=== PATIENT | male | born 2000 | race American Indian/Alaskan Native ===

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

== ENCOUNTER 2018-11-01 23:49 | Emergency (ER) | payer MEDICAID ==
[2018-11-02] MEDS ORDERED: NACL 0.9% 1000 ML 1,000 ML IV ONE (00:22)
[2018-11-02] MEDS ORDERED: KEPPRA 1,000 MG/NS 0.75% 100ML 1,000 MG/100 ML BAG IV ONE (00:22)
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
[2018-11-02 00:43] LABS: Basophils % (Auto) 0.4 % (0.0-1.8); Eosinophils % (Auto) 0.8 % (0.0-4.3); Lymphocytes # (Auto) 0.6 K/mm3 (1.2-5.4); Lymphocytes % (Auto) 13.3 % (13.4-35.0); Mean Corpuscular HGB Conc 37 % (32-34); Mean Corpuscular Volume 88 fl (84-94); Monocytes # (Auto) 0.3 K/mm3 (0.0-0.8); Monocytes % (Auto) 7.6 % (0.0-7.3); Platelet Count 244 K/mm3 (140-440); Red Blood Count 4.88 M/mm3 (3.65-5.03); Red Cell Distribution Width 12.7 % (13.2-15.2)
[2018-11-02 01:17] LABS: Hematocrit 42.9 % (35.5-45.6); Hemoglobin 15.6 gm/dl (11.8-15.2)
--- NOTE | 2018-11-02 01:19 | Cat Scan Report ---
PROCEDURE: CT HEAD/BRAIN WO CON TECHNIQUE: Computerized tomography of the head was performed without contrast material. CT DOSE LENGTH PRODUCT: 920.5 mGycm HISTORY: Seizure COMPARISONS: None . FINDINGS: Skull and scalp: Normal . Paranasal sinuses: Normal . Ventricles and subarachnoid spaces: Normal . Cerebrum: No evidence of hemorrhage, acute infarction or mass . Cerebellum and brainstem: No evidence of hemorrhage, acute infarction or mass . Vasculature: Normal . Other: None . ASPECTS: 10 IMPRESSION: Normal Examination . This document is electronically signed by Yanet Mathews DO., November 02 2018 01:17:39 AM ET
[2018-11-02 01:26] LABS: Alanine Aminotransferase 10 units/L (7-56); Albumin 4.4 g/dL (3.9-5); BUN/Creatinine Ratio 11; Blood Urea Nitrogen 10 mg/dL (9-20); Calcium 9.9 mg/dL (8.4-10.2); Hemolysis Index 6
--- NOTE | 2018-11-02 01:29 | XRay Report ---
PROCEDURE: XR FOREARM RT TECHNIQUE: Right forearm radiographs, AP and lateral views. HISTORY: right forearm pain COMPARISONS: None . FINDINGS: Fracture (s) and/or Dislocation(s): None . Joint space(s): Normal . Soft tissues: Normal . Bone mineralization: Normal . Foreign bodies: None . IMPRESSION: Normal Examination . This document is electronically signed by Yanet Mathews DO., November 02 2018 01:27:54 AM ET
[2018-11-02] MEDS ORDERED: TORADOL IV ONE (01:31)
[2018-11-02 02:38] LABS: Amphetamine Screen,Urine PRESUMPTIVE NEGATIVE; Benzodiazepines Screen,Urine PRESUMPTIVE NEGATIVE; Cannabinoid Screen,Urine PRESUMPTIVE NEGATIVE; Cocaine Screen,Urine PRESUMPTIVE NEGATIVE; Methadone Screen,Urine PRESUMPTIVE NEGATIVE; Opiate Screen,Urine PRESUMPTIVE NEGATIVE
[2018-11-02 02:48] LABS: Bilirubin,Urine NEG (Negative); Blood,Urine NEG (Negative); Color,Urine Yellow (Yellow); Hyaline Casts,Urine 6 /LPF; Mucus,Urine FEW /HPF; Urobilinogen,Urine < 2.0 mg/dL (<2.0)
[2018-11-02 03:45] VITALS: BP 122/71
== END 2018-11-02 03:05 | disposition home or self-care (01) ==
LOC: ED 23:49
DX: G40.909 Epilepsy, unspecified, not intractable, without status epilepticus (principal); M79.631 Pain in right forearm; F12.10 Cannabis abuse, uncomplicated; F17.200 Nicotine dependence, unspecified, uncomplicated
CPT/HCPCS: 36415; 70450; 73090; 80053; 80307; 81001; 82550; 85025; 93005; 93010; 96374; 96375; 99285; G0480; J1885; J1953; J7030; 80320

== ENCOUNTER 2019-02-03 02:14 | Emergency (ER) | payer MEDICAID ==
[2019-02-03] MEDS ORDERED: NACL 0.9% 1000 ML 1,000 ML IV ONE (02:22)
[2019-02-03] MEDS ORDERED: KEPPRA 1,000 MG/NS 0.75% 100ML 1,000 MG/100 ML BAG IV ONE (02:23)
--- NOTE | 2019-02-03 02:33 | Emergency Department Report ---
ED Altered Mental Status HPI - General Stated Complaint: UNRESPONSIVE Time Seen by Provider: 02/03/19 02:21 - History of Present Illness Initial Comments: Patient is 18 years old male with history of seizure. Patient brought to the emergency room via EMS after patient was found unresponsive at home. EMS stated that patient received narcan but no response. Upon arrival to the ER patient is obtunded but responds to voice command. Vital signs stable with oxygen saturation of 100% on nonrebreather. MD Complaint: altered mental status, decreased responsiveness -: unknown Severity: moderate Context: seizure disorder - Related Data Previous Rx's Medication Instructions Recorded Last Taken Type levETIRAcetam [Keppra] 500 mg PO BID #60 tablet 11/02/18 Unknown Rx levETIRAcetam [Keppra TAB] 500 mg PO BID #60 tablet 02/03/19 Unknown Rx Allergies Allergy/AdvReac Type Severity Reaction Status Date / Time No Known Allergies Allergy Unverified 02/15/17 19:24 ED Review of Systems ROS: Stated complaint: UNRESPONSIVE Other details as noted in HPI Comment: All other systems reviewed and negative Constitutional: denies: chills Cardiovascular: denies: chest pain, palpitations Gastrointestinal: denies: abdominal pain, nausea Neurological: denies: headache, weakness, numbness, paresthesias ED Past Medical Hx - Past Medical History Hx Seizures: Yes (possible never ffup) - Social History Smoking Status: Current Every Day Smoker Substance Use Type: Marijuana - Medications Home Medications: Home Medications Medication Instructions Recorded Confirmed Last Taken Type levETIRAcetam [Keppra] 500 mg PO BID #60 tablet 11/02/18 Unknown Rx levETIRAcetam [Keppra TAB] 500 mg PO BID #60 tablet 02/03/19 Unknown Rx ED Physical Exam - General Limitations: Altered Mental Status General appearance: obtunded - Head Head exam: Present: atraumatic, normocephalic, normal inspection - Eye Eye exam: Present: normal appearance, PERRL - ENT ENT exam: Present: normal exam, normal orophraynx, mucous membranes moist - Neck Neck exam: Present: normal inspection, full ROM. Absent: tenderness, meningismus, lymphadenopathy, thyromegaly - Respiratory Respiratory exam: Present: normal lung sounds bilaterally - Cardiovascular Cardiovascular Exam: Present: regular rate, normal rhythm, normal heart sounds - GI/Abdominal GI/Abdominal exam: Present: soft, normal bowel sounds. Absent: distended, tenderness, guarding, rebound, rigid, organomegaly, mass, bruit, pulsatile mass - Extremities Exam Extremities exam: Present: normal inspection, full ROM, normal capillary refill - Back Exam Back exam: Present: normal inspection, full ROM. Absent: tenderness, CVA tenderness (R), CVA tenderness (L), muscle spasm, paraspinal tenderness - Neurological Exam Neurological exam: Present: altered - Psychiatric Psychiatric exam: Present: normal mood - Skin Skin exam: Present: warm, intact, normal color ED Course Vital Signs 02/03/19 02/03/19 02/03/19 02:22 03:01 03:45 Temperature 97.4 F L Pulse Rate 43 L 49 L 62 Respiratory 18 23 19 Rate Blood Pressure 159/81 155/109 155/109 O2 Sat by Pulse 100 100 100 Oximetry 02/03/19 02/03/19 02/03/19 04:31 05:01 05:15 Temperature Pulse Rate 47 L 56 L 46 L Respiratory 20 17 20 Rate Blood Pressure 140/77 125/76 125/76 O2 Sat by Pulse 98 100 98 Oximetry 02/03/19 02/03/19 02/03/19 05:31 05:45 06:01 Temperature Pulse Rate 44 L 42 L 38 L Respiratory 19 18 16 Rate Blood Pressure 125/76 125/76 121/58 O2 Sat by Pulse 98 98 100 Oximetry 02/03/19 02/03/19 02/03/19 06:15 06:30 07:01 Temperature Pulse Rate 35 L 36 L 37 L Respiratory 16 18 19 Rate Blood Pressure 121/58 135/83 126/68 O2 Sat by Pulse 100 100 100 Oximetry 02/03/19 02/03/19 02/03/19 08:01 09:01 10:01 Temperature Pulse Rate 41 L 38 L 66 Respiratory 19 19 16 Rate Blood Pressure 117/65 121/65 127/65 O2 Sat by Pulse 97 98 97 Oximetry 02/03/19 11:01 Temperature Pulse Rate 41 L Respiratory 18 Rate Blood Pressure 126/67 O2 Sat by Pulse 100 Oximetry - Lab Data Result diagrams: 02/03/19 02:30 02/03/19 02:30 Lab Results 02/03/19 02/03/19 02/03/19 Range/Units 02:30 02:30 02:30 WBC 3.4 L (4.5-11.0) K/mm3 RBC 5.05 H (3.65-5.03) M/mm3 Hgb 15.9 H (11.8-15.2) gm/dl Hct 44.6 (35.5-45.6) % MCV 88 (84-94) fl MCH 31 (28-32) pg MCHC 36 H (32-34) % RDW 13.0 L (13.2-15.2) % Plt Count 219 (140-440) K/mm3 [place] % (Auto) Information Security Engineer Add Manual Diff Complete Total Counted 100 Seg Neuts % (Manual) 52.0 (40.0-70.0) % Band Neutrophils % 0 % Lymphocytes % (Manual) 27.0 (13.4-35.0) % Reactive Lymphs % (Man) 0 % Monocytes % (Manual) 16.0 H (0.0-7.3) % Eosinophils % (Manual) 4.0 (0.0-4.3) % Basophils % (Manual) 1.0 (0.0-1.8) % Metamyelocytes % 0 % Myelocytes % 0 % Promyelocytes % 0 % Blast Cells % 0 % Nucleated RBC % Not Reportable Seg Neutrophils # Man 1.8 (1.8-7.7) K/mm3 Band Neutrophils # 0.0 K/mm3 Lymphocytes # (Manual) 0.9 L (1.2-5.4) K/mm3 Abs React Lymphs (Man) 0.0 K/mm3 Monocytes # (Manual) 0.5 (0.0-0.8) K/mm3 Eosinophils # (Manual) 0.1 (0.0-0.4) K/mm3 Basophils # (Manual) 0.0 (0.0-0.1) K/mm3 Metamyelocytes # 0.0 K/mm3 Myelocytes # 0.0 K/mm3 Promyelocytes # 0.0 K/mm3 Blast Cells # 0.0 K/mm3 WBC Morphology Not Reportable Hypersegmented Neuts Not Reportable Hyposegmented Neuts Not Reportable Hypogranular Neuts Not Reportable Smudge Cells Not Reportable Toxic Granulation Not Reportable Toxic Vacuolation Not Reportable Dohle Bodies Not Reportable Pelger-Huet Anomaly Not Reportable Heriberto Rods Not Reportable Platelet Estimate Consistent w auto Clumped Platelets Not Reportable Plt Clumps, EDTA Not Reportable Large Platelets 1+ Giant Platelets Not Reportable Platelet Satelliting Not Reportable Plt Morphology Comment Not Reportable RBC Morphology Normal Dimorphic RBCs Not Reportable Polychromasia Not Reportable Hypochromasia Not Reportable Poikilocytosis Not Reportable Anisocytosis Not Reportable Microcytosis Not Reportable Macrocytosis Not Reportable Spherocytes Not Reportable Pappenheimer Bodies Not Reportable Sickle Cells Not Reportable Target Cells Not Reportable Tear Drop Cells Not Reportable Ovalocytes Not Reportable Helmet Cells Not Reportable [place] Bodies Not Reportable Childress Rings Not Reportable Marilyn Cells Not Reportable Bite Cells Not Reportable Crenated Cell Not Reportable Elliptocytes Not Reportable Acanthocytes (Spur) Not Reportable Rouleaux Not Reportable Hemoglobin C Crystals Not Reportable Schistocytes Not Reportable Malaria parasites Not Reportable Keith Bodies Not Reportable Hem Pathologist Commnt No Sodium 143 (137-145) mmol/L Potassium 3.8 (3.6-5.0) mmol/L Chloride 101.5 (98-107) mmol/L Carbon Dioxide 33 H (22-30) mmol/L Anion Gap 12 mmol/L BUN 13 (9-20) mg/dL Creatinine 1.1 (0.8-1.5) mg/dL Estimated GFR > 60 ml/min BUN/Creatinine Ratio 12 % Glucose 99 (75-100) mg/dL Calcium 9.6 (8.4-10.2) mg/dL Total Bilirubin 0.80 (0.1-1.2) mg/dL Direct Bilirubin < 0.2 (0-0.2) mg/dL Indirect Bilirubin 0.6 mg/dL AST 15 (5-40) units/L ALT 11 (7-56) units/L Alkaline Phosphatase 103 (35-129) units/L Total Protein 7.5 (6.3-8.2) g/dL Albumin 4.5 (3.9-5) g/dL Albumin/Globulin Ratio 1.5 % Urine Color (Yellow) Urine Turbidity (Clear) Urine pH (5.0-7.0) Ur Specific [place] (1.003-1.030) Urine Protein (Negative) mg/dL Urine Glucose (UA) (Negative) mg/dL Urine Ketones (Negative) mg/dL Urine Blood (Negative) Urine Nitrite (Negative) Urine Bilirubin (Negative) Urine Urobilinogen (<2.0) mg/dL Ur Leukocyte Esterase (Negative) Urine WBC (Auto) (0.0-6.0) /HPF Urine RBC (Auto) (0.0-6.0) /HPF Urine Mucus /HPF Urine Opiates Screen Urine Methadone Screen Ur Barbiturates Screen Ur Phencyclidine Scrn Ur Amphetamines Screen U Benzodiazepines Scrn Urine Cocaine Screen U Marijuana (THC) Screen Drugs of Abuse Note Plasma/Serum Alcohol < 0.01 (0-0.07) % 02/03/19 02/03/19 Range/Units 03:32 03:32 WBC (4.5-11.0) K/mm3 RBC (3.65-5.03) M/mm3 Hgb (11.8-15.2) gm/dl Hct (35.5-45.6) % MCV (84-94) fl MCH (28-32) pg MCHC (32-34) % RDW (13.2-15.2) % Plt Count (140-440) K/mm3 [place] % (Auto) Add Manual Diff Total Counted Seg Neuts % (Manual) (40.0-70.0) % Band Neutrophils % % Lymphocytes % (Manual) (13.4-35.0) % Reactive Lymphs % (Man) % Monocytes % (Manual) (0.0-7.3) % Eosinophils % (Manual) (0.0-4.3) % Basophils % (Manual) (0.0-1.8) % Metamyelocytes % % Myelocytes % % Promyelocytes % % Blast Cells % % Nucleated RBC % Seg Neutrophils # Man (1.8-7.7) K/mm3 Band Neutrophils # K/mm3 Lymphocytes # (Manual) (1.2-5.4) K/mm3 Abs React Lymphs (Man) K/mm3 Monocytes # (Manual) (0.0-0.8) K/mm3 Eosinophils # (Manual) (0.0-0.4) K/mm3 Basophils # (Manual) (0.0-0.1) K/mm3 Metamyelocytes # K/mm3 Myelocytes # K/mm3 Promyelocytes # K/mm3 Blast Cells # K/mm3 WBC Morphology Hypersegmented Neuts Hyposegmented Neuts Hypogranular Neuts Smudge Cells Toxic Granulation Toxic Vacuolation Dohle Bodies Pelger-Huet Anomaly Heriberto Rods Platelet Estimate Clumped Platelets Plt Clumps, EDTA Large Platelets Giant Platelets Platelet Satelliting Plt Morphology Comment RBC Morphology Dimorphic RBCs Polychromasia Hypochromasia Poikilocytosis Anisocytosis Microcytosis Macrocytosis Spherocytes Pappenheimer Bodies Sickle Cells Target Cells Tear Drop Cells Ovalocytes Helmet Cells [place] Bodies Childress Rings Marilyn Cells Bite Cells Crenated Cell Elliptocytes Acanthocytes (Spur) Rouleaux Hemoglobin C Crystals Schistocytes Malaria parasites Keith Bodies Hem Pathologist Commnt Sodium (137-145) mmol/L Potassium (3.6-5.0) mmol/L Chloride (98-107) mmol/L Carbon Dioxide (22-30) mmol/L Anion Gap mmol/L BUN (9-20) mg/dL Creatinine (0.8-1.5) mg/dL Estimated GFR ml/min BUN/Creatinine Ratio % Glucose (75-100) mg/dL Calcium (8.4-10.2) mg/dL Total Bilirubin (0.1-1.2) mg/dL Direct Bilirubin (0-0.2) mg/dL Indirect Bilirubin mg/dL AST (5-40) units/L ALT (7-56) units/L Alkaline Phosphatase (35-129) units/L Total Protein (6.3-8.2) g/dL Albumin (3.9-5) g/dL Albumin/Globulin Ratio % Urine Color Yellow (Yellow) Urine Turbidity Clear (Clear) Urine pH 6.0 (5.0-7.0) Ur Specific [place] 1.030 (1.003-1.030) Urine Protein <15 mg/dl (Negative) mg/dL Urine Glucose (UA) Neg (Negative) mg/dL Urine Ketones Neg (Negative) mg/dL Urine Blood Neg (Negative) Urine Nitrite Neg (Negative) Urine Bilirubin Neg (Negative) Urine Urobilinogen 4.0 (<2.0) mg/dL Ur Leukocyte Esterase Neg (Negative) Urine WBC (Auto) < 1.0 (0.0-6.0) /HPF Urine RBC (Auto) 11.0 (0.0-6.0) /HPF Urine Mucus Few /HPF Urine Opiates Screen Presumptive negative Urine Methadone Screen Presumptive negative Ur Barbiturates Screen Presumptive negative Ur Phencyclidine Scrn Presumptive negative Ur Amphetamines Screen Presumptive negative U Benzodiazepines Scrn Presumptive negative Urine Cocaine Screen Presumptive negative U Marijuana (THC) Screen Presumptive negative Drugs of Abuse Note Disclamer Plasma/Serum Alcohol (0-0.07) % - EKG Data -: EKG Interpreted by Me EKG shows normal: sinus rhythm Rate: bradycardia Interpretation: no acute changes - Radiology Data Radiology results: report reviewed CT brain is negative for acute finding. - Medical Decision Making Patient is 18 years old male with history of seizure. Patient brought to the e mergency room via EMS after patient was found unresponsive at home. EMS stated that patient received narcan but no response. Upon arrival to the ER patient is obtunded but responds to voice command. Vital signs stable with oxygen saturation of 100% on nonrebreather. While in the ER patient had one episode of generalized tonic-clonic seizure for which patient receive 1 mg of Ativan that completely aborted the seizure. Patient is post ictal. Mother stated that she has history of seizure and his grandmother also had history of seizure. She stated that had extensive cardiac workup BACK negative. Patient will be started on Keppra 500 mg twice a day and advised to follow-up with neurologist in the next 2-3 days and to return to the ER if symptoms are not improved. Critical Care Time: Yes Critical care time in (mins) excluding proc time.: 30 Critical care attestation.: If time is entered above; I have spent that time in minutes in the direct care of this critically ill patient, excluding procedure time. ED Disposition Clinical Impression: Seizure, Altered mental status Disposition: DC-01 TO HOME OR SELFCARE Is pt being admited?: No Condition: Stable Instructions: Recurrent Seizures Adult (ED) Prescriptions: levETIRAcetam [Keppra TAB] 500 mg PO BID #60 tablet Referrals: PRIMARY CARE, [Primary Care Provider] - 3-5 Days
[2019-02-03 02:56] LABS: Hematocrit 44.6 % (35.5-45.6); Hemoglobin 15.9 gm/dl (11.8-15.2); Mean Corpuscular HGB Conc 36 % (32-34); Mean Corpuscular Volume 88 fl (84-94); Platelet Count 219 K/mm3 (140-440); Red Blood Count 5.05 M/mm3 (3.65-5.03)
--- NOTE | 2019-02-03 03:00 | Cat Scan Report ---
CT head/brain wo con INDICATION / CLINICAL INFORMATION: Altered Mental Status. TECHNIQUE: All CT scans at this location are performed using CT dose reduction for ALARA by means of automated e xposure control. COMPARISON: 11/02/2018 FINDINGS: Ventricle size is normal. No mass or mass effect is seen. There is no evidence of intracranial hemorr [place]ura. No obvious area of infarction is identified. Visualized paranasal sinuses are clear IMPRESSION: No acute findings or interval change from 11/02/2018 Signer Name: Giovanni Elena MD FACR Signed: 02/03/2019 2:55 AM Workstation Name: [id number]
[2019-02-03 03:22] LABS: Alanine Aminotransferase 11 units/L (7-56); Albumin 4.5 g/dL (3.9-5); BUN/Creatinine Ratio 12; Blood Urea Nitrogen 13 mg/dL (9-20); Calcium 9.6 mg/dL (8.4-10.2); Hemolysis Index 14
[2019-02-03 03:31] LABS: Bilirubin,Direct < 0.2 mg/dL (0-0.2)
[2019-02-03 03:33] LABS: Total Cells Counted 100
[2019-02-03 03:34] LABS: Large Platelets 1+; Platelet Estimate Consistent w Auto; RBC Morphology Normal
[2019-02-03] MEDS ORDERED: ATIVAN IV ONE (03:38)
[2019-02-03] MEDS ORDERED: ATIVAN ONE (03:40)
[2019-02-03 03:52] LABS: Bilirubin,Urine NEG (Negative); Blood,Urine NEG (Negative); Color,Urine Yellow (Yellow); Mucus,Urine FEW /HPF; Protein,Urine <15 mg/dL mg/dL (Negative); WBC,Urine < 1.0 /HPF (0.0-6.0)
[2019-02-03 03:56] LABS: Amphetamine Screen,Urine PRESUMPTIVE NEGATIVE; Benzodiazepines Screen,Urine PRESUMPTIVE NEGATIVE; Cannabinoid Screen,Urine PRESUMPTIVE NEGATIVE; Cocaine Screen,Urine PRESUMPTIVE NEGATIVE; Methadone Screen,Urine PRESUMPTIVE NEGATIVE; Opiate Screen,Urine PRESUMPTIVE NEGATIVE
[2019-02-03] MEDS ORDERED: FIORICET PO ONE (11:36)
[2019-02-03 12:02] VITALS: BP 126/67
== END 2019-02-03 13:45 | disposition home or self-care (01) ==
LOC: ED 02:14
DX: G40.909 Epilepsy, unspecified, not intractable, without status epilepticus (principal); R41.82 Altered mental status, unspecified; F17.200 Nicotine dependence, unspecified, uncomplicated; F12.90 Cannabis use, unspecified, uncomplicated; Z79.899 Other long term (current) drug therapy
CPT/HCPCS: 36415; 70450; 80048; 80076; 80307; 81001; 85007; 85025; 93005; 93010; 96365; 96366; 96375; 99291; J1953; J2060; J7030; 80320; G0480

== ENCOUNTER 2019-08-10 17:00 | Emergency (ER) | payer MEDICAID ==
[2019-08-10 17:15] VITALS: BP 133/85
--- NOTE | 2019-08-10 17:24 | Emergency Department Report ---
Chief Complaint: Urogenital-Male Stated Complaint: GROIN PAIN Time Seen by Provider: 08/10/19 17:18 - HPI History of Present Illness: Patient is a 19-year-old male who presents to ED complaining of penile discharge 1 day. Patient states he noticed a penile discharge last night. Patient denies any localized or testicular pain or swelling. Patient denies any dysuria frequency or urge, fever, nausea vomiting, abdominal pain States girlfriend was treated for chlamydia - ROS Review of Systems: As noted in HPI - Exam Vital Signs: Vital Signs 08/10/19 17:08 Temperature 97.7 F Pulse Rate 63 Respiratory 16 Rate Blood Pressure 133/85 O2 Sat by Pulse 100 Oximetry MSE screening note: Focused history and physical exam performed. Due to findings the following was ordered: ED Medical Decision Making - Medical Decision Making 19-year-old male presents for a nonmedical emergency. Patient given resources to follow-up for STD screening and testing as well as treatment. Past sensory normal patient is in no acute distress ED Disposition for MSE Clinical Impression: Possible exposure to STD Disposition: Z-07 MED SCREENING EXAM-LEFT Is pt being admited?: No Does the pt Need Aspirin: No Condition: Stable Instructions: Sexually Transmitted Diseases in Adolescents (ED) Referrals: [facility] [Outside] - 3-5 Days [facility] [Outside] - 3-5 Days [facility] [Outside] - 3-5 Days NATALEE BURNS MD [Staff Physician] - 3-5 Days Forms: Work/School Release Form(ED) Time of Disposition: 17:26
== END 2019-08-10 17:47 | disposition left against medical advice (07) ==
LOC: ED 17:00
DX: R36.9 Urethral discharge, unspecified (principal); Z20.2 Contact with and (suspected) exposure to infections with a predominantly sexual mode of transmission
CPT/HCPCS: 99281

== ENCOUNTER 2022-01-29 02:23 | Emergency (ER) | payer SELFPAY ==
[2022-01-29 07:50] VITALS: BP 130/86
== END 2022-01-29 12:37 | disposition left against medical advice (07) ==
LOC: ED 02:23
DX: R53.1 Weakness (principal); Z53.21 Procedure and treatment not carried out due to patient leaving prior to being seen by health care provider